=== PATIENT | male | born 1955 | race Caucasian/White ===

== ENCOUNTER 2021-06-19 05:28 | Day surgery (SDC) | payer OTHER ==
[~2021-06-19] VITALS: Ht 177.8 cm; Wt 80.2 kg
[2021-06-19] MEDS ORDERED: DITROPAN XL10 MG PO (06:12)
[2021-06-19 06:13] VITALS: BP 127/80; PULSE 61; TEMP 98
[2021-06-19] MEDS ORDERED: NORCO 325 MG-51 TAB PO (09:00)
[2021-06-19 09:35] VITALS: BP 117/75; PULSE 93; TEMP 98
--- NOTE | 2021-06-19 09:35 | NUR ---
Pt returns to [facility] from PACU, drowsy but easily arousable. VSS. at bedside. Pt denies pain. Call light in reach. 3 lap sites to abdmoen with exofen, clean and dry.
[2021-06-19 09:50] VITALS: BP 110/72; PULSE 53
--- NOTE | 2021-06-19 09:50 | NUR ---
Pt doing well, awake and alert, tolerates applesauce and diet pepsi well. Will give pain medication for ride home per pt request.
[2021-06-19 10:05] VITALS: BP 128/73; PULSE 51
--- NOTE | 2021-06-19 10:15 | NUR ---
Pt up to the bathroom, voids without difficulty. Ready to go home, discharge instructions given, IV discontinued and pt taken out via wheelchair and left in care of his at 1030. Pt and notified that follow up appointment will be in [facility] in 2 weeks and that voicemail was left and to make sure that appoinment gets made.
== END 2021-06-19 10:30 | disposition home or self-care (01) ==
LOC: SDCO 05:28
DX: K40.90 Unilateral inguinal hernia, without obstruction or gangrene, not specified as recurrent (principal); K21.9 Gastro-esophageal reflux disease without esophagitis; F17.220 Nicotine dependence, chewing tobacco, uncomplicated; Z20.822 Contact with and (suspected) exposure to COVID-19; Z79.899 Other long term (current) drug therapy
CPT/HCPCS: C1781; J0690; J1100; J1885; J2405; J2704; J3010; J7120